=== PATIENT | male | born 1990 ===

== ENCOUNTER 2017-05-29 15:20 | Emergency (ER) | payer OTHER ==
[2017-05-29 16:22] LABS: Basophils % (Auto) 0.3 % (0.0-1.8); Hematocrit 48.5 % (35.5-45.6); Lymphocytes # (Auto) 0.8 K/mm3 (1.2-5.4); Lymphocytes % (Auto) 6.1 % (13.4-35.0); Mean Corpuscular HGB Conc 35 % (32-34); Mean Corpuscular Hemoglobin 32 pg (28-32); Mean Corpuscular Volume 90 fl (84-94); Monocytes # (Auto) 1.2 K/mm3 (0.0-0.8); Monocytes % (Auto) 9.4 % (0.0-7.3); Platelet Count 188 K/mm3 (140-440); Red Blood Count 5.39 M/mm3 (3.65-5.03); Red Cell Distribution Width 12.7 % (13.2-15.2)
[2017-05-29 16:40] LABS: BUN/Creatinine Ratio 16; Blood Urea Nitrogen 8 mg/dL (9-20); Calcium 10.2 mg/dL (8.4-10.2); Hemolysis Index 6
[2017-05-29 17:36] LABS: Amorphous Crystals,Urine Few; Calcium Oxalate Crystals,Urine FEW
[2017-05-29 17:38] LABS: Bacteria,Urine 2+ /HPF (Negative); Bilirubin,Urine NEG (Negative); Blood,Urine NEG (Negative); Color,Urine Amber (Yellow); Mucus,Urine 2+ /HPF; Nitrite,Urine NEG (Negative); Protein,Urine <15 mg/dL mg/dL (Negative)
[2017-05-29 18:57] LABS: Amphetamine Screen,Urine PRESUMPTIVE NEGATIVE; Benzodiazepines Screen,Urine PRESUMPTIVE NEGATIVE; Cannabinoid Screen,Urine PRESUMPTIVE NEGATIVE; Cocaine Screen,Urine PRESUMPTIVE NEGATIVE; Methadone Screen,Urine PRESUMPTIVE NEGATIVE; Opiate Screen,Urine PRESUMPTIVE NEGATIVE
[2017-05-29] MEDS ORDERED: NACL 0.9% 1000 ML 1,000 ML IV ONE (20:43)
[2017-05-29 21:34] LABS: Free T4 (Free Thyroxine) 1.27 ng/dL (0.76-1.46)
--- NOTE | 2017-05-29 22:06 | Emergency Department Report ---
ED Psych HPI - General Chief Complaint: Psych Stated Complaint: AMS Time Seen by Provider: 05/29/17 20:14 Source: patient, family, EMS, historical interpreter Mode of arrival: Ambulatory Limitations: Altered Mental Status - History of Present Illness Initial Comments: 26-year-old male with a past medical history of seizures presents to the hospital with complaints of alteration in mental status. As per triage states patient is not making sense. Patient just returned from a trip to [place] 2 days ago and has been not eating or sleeping with a fast heartbeat. Patient denies any pain. He is oriented to place, person, and year. He answers some questions appropriately and others inappropriately and makes various sounds when questioned. No distress noted. - Related Data Allergies Allergy/AdvReac Type Severity Reaction Status Date / Time No Known Allergies Allergy Unverified 05/29/17 15:48 ED Review of Systems ROS: Stated complaint: AMS Other details as noted in HPI Comment: Unobtainable due to pts medical conditions (limited due to psychosis) ED Past Medical Hx - Past Medical History Previous Medical History?: Yes Hx Seizures: Yes - Surgical History Past Surgical History?: No - Social History Smoking Status: Never Smoker Substance Use Type: None ED Physical Exam - General Limitations: Language Barrier - Other Other exam information: General: No limitations, patient is alert in no acute distress Head exam: Atraumatic, normocephalic Eyes exam: Normal appearance ENT: Moist mucous membrane, normal oropharynx Neck exam: Normal inspection, full range of motion Respiratory exam: Clear to auscultation bilateral, no wheezes, rales, crackles Cardiovascular: Normal rate and rhythm, normal heart sounds Abdomen: Soft, nondistended, and nontender, with normal bowel sounds, no rebound, or guarding Extremity: Full range of motion normal inspection no deformity Back: Normal Inspection, full range of motion, no tenderness Neurologic: Alert, oriented x3, cranial nerves intact, no motor or sensory deficit Psychiatric: Makes eye contact, answers some questions appropriately but appears to have psychosis and not making sense that time Skin: Warm, dry, intact ED Course Vital Signs 05/29/17 05/29/17 05/29/17 15:38 18:09 18:42 Temperature 100 F H 99.7 F H Pulse Rate 110 H 90 Respiratory Rate Blood Pressure 132/63 Blood Pressure 117/66 [Right] O2 Sat by Pulse 96 98 96 Oximetry 05/29/17 05/29/17 05/29/17 18:46 18:58 19:00 Temperature Pulse Rate 94 H 99 H Respiratory 22 8 L Rate Blood Pressure 134/83 Blood Pressure 128/76 [Right] O2 Sat by Pulse 96 96 97 Oximetry 05/29/17 05/29/17 05/29/17 19:15 19:31 20:00 Temperature Pulse Rate 91 H 93 H 95 H Respiratory 26 H 25 H 16 Rate Blood Pressure 134/83 134/83 135/78 Blood Pressure [Right] O2 Sat by Pulse 95 96 Oximetry 05/29/17 05/29/17 05/29/17 20:31 21:00 21:51 Temperature Pulse Rate 102 H 100 H Respiratory 16 15 Rate Blood Pressure 135/78 136/85 136/85 Blood Pressure [Right] O2 Sat by Pulse 95 97 95 Oximetry 05/29/17 05/29/17 05/29/17 22:00 22:31 23:00 Temperature Pulse Rate Respiratory Rate Blood Pressure 128/82 128/82 130/76 Blood Pressure [Right] O2 Sat by Pulse 96 96 97 Oximetry 05/30/17 02:29 Temperature 99.8 F H Pulse Rate Respiratory Rate Blood Pressure Blood Pressure [Right] O2 Sat by Pulse Oximetry ED Medical Decision Making - Lab Data Result diagrams: 05/29/17 16:04 05/29/17 16:04 Lab Results 05/29/17 05/29/17 05/29/17 Range/Units 16:04 16:04 16:04 WBC 12.7 H (4.5-11.0) K/mm3 RBC 5.39 H (3.65-5.03) M/mm3 Hgb 17.0 H (11.8-15.2) gm/dl Hct 48.5 H (35.5-45.6) % MCV 90 (84-94) fl MCH 32 (28-32) pg MCHC 35 H (32-34) % RDW 12.7 L (13.2-15.2) % Plt Count 188 (140-440) K/mm3 Lymph % (Auto) 6.1 L (13.4-35.0) % Early % (Auto) 9.4 H (0.0-7.3) % Eos % (Auto) 0.0 (0.0-4.3) % Baso % (Auto) 0.3 (0.0-1.8) % Lymph # 0.8 L (1.2-5.4) K/mm3 Early # 1.2 H (0.0-0.8) K/mm3 Eos # 0.0 (0.0-0.4) K/mm3 Baso # 0.0 (0.0-0.1) K/mm3 Seg Neutrophils % 84.2 H (40.0-70.0) % Seg Neutrophils # 10.7 H (1.8-7.7) K/mm3 D-Dimer (0-234) ng/mlDDU Sodium 141 (137-145) mmol/L Potassium 4.2 (3.6-5.0) mmol/L Chloride 101.4 (98-107) mmol/L Carbon Dioxide 24 (22-30) mmol/L Anion Gap 20 mmol/L BUN 8 L (9-20) mg/dL Creatinine 0.5 L (0.8-1.5) mg/dL Estimated GFR > 60 ml/min BUN/Creatinine Ratio 16 % Glucose 129 H (75-100) mg/dL Calcium 10.2 (8.4-10.2) mg/dL Ammonia (25-60) umol/L Total Creatine Kinase (55-170) units/L TSH (0.270-4.200) mlU/mL Free T4 (0.76-1.46) ng/dL Urine Color (Yellow) Urine Turbidity (Clear) Urine pH (5.0-7.0) Ur Specific Laurel (1.003-1.030) Urine Protein (Negative) mg/dL Urine Glucose (UA) (Negative) mg/dL Urine Ketones (Negative) mg/dL Urine Blood (Negative) Urine Nitrite (Negative) Ur Reducing Substances Urine Bilirubin (Negative) Urine Ictotest Urine Urobilinogen (<2.0) mg/dL Ur Leukocyte Esterase (Negative) Urine WBC (Auto) (0.0-6.0) /HPF Urine RBC (Auto) (0.0-6.0) /HPF Urine Bacteria (Auto) (Negative) /HPF Calcium Oxalate Crystal Amorphous Crystals Urine Mucus /HPF Salicylates (2.8-20.0) mg/dL Urine Opiates Screen Urine Methadone Screen Acetaminophen (10.0-30.0) ug/mL Ur Barbiturates Screen Ur Phencyclidine Scrn Ur Amphetamines Screen U Benzodiazepines Scrn Urine Cocaine Screen U Marijuana (THC) Screen Drugs of Abuse Note Plasma/Serum Alcohol < 0.01 (0-0.07) gm% 05/29/17 05/29/17 05/29/17 Range/Units 18:23 20:52 20:52 WBC (4.5-11.0) K/mm3 RBC (3.65-5.03) M/mm3 Hgb (11.8-15.2) gm/dl Hct (35.5-45.6) % MCV (84-94) fl MCH (28-32) pg MCHC (32-34) % RDW (13.2-15.2) % Plt Count (140-440) K/mm3 Lymph % (Auto) (13.4-35.0) % Early % (Auto) (0.0-7.3) % Eos % (Auto) (0.0-4.3) % Baso % (Auto) (0.0-1.8) % Lymph # (1.2-5.4) K/mm3 Early # (0.0-0.8) K/mm3 Eos # (0.0-0.4) K/mm3 Baso # (0.0-0.1) K/mm3 Seg Neutrophils % (40.0-70.0) % Seg Neutrophils # (1.8-7.7) K/mm3 D-Dimer 135.00 (0-234) ng/mlDDU Sodium (137-145) mmol/L Potassium (3.6-5.0) mmol/L Chloride (98-107) mmol/L Carbon Dioxide (22-30) mmol/L Anion Gap mmol/L BUN (9-20) mg/dL Creatinine (0.8-1.5) mg/dL Estimated GFR ml/min BUN/Creatinine Ratio % Glucose (75-100) mg/dL Calcium (8.4-10.2) mg/dL Ammonia 52.0 (25-60) umol/L Total Creatine Kinase (55-170) units/L TSH (0.270-4.200) mlU/mL Free T4 (0.76-1.46) ng/dL Urine Color (Yellow) Urine Turbidity (Clear) Urine pH (5.0-7.0) Ur Specific Laurel (1.003-1.030) Urine Protein (Negative) mg/dL Urine Glucose (UA) (Negative) mg/dL Urine Ketones (Negative) mg/dL Urine Blood (Negative) Urine Nitrite (Negative) Ur Reducing Substances Urine Bilirubin (Negative) Urine Ictotest Urine Urobilinogen (<2.0) mg/dL Ur Leukocyte Esterase (Negative) Urine WBC (Auto) (0.0-6.0) /HPF Urine RBC (Auto) (0.0-6.0) /HPF Urine Bacteria (Auto) (Negative) /HPF Calcium Oxalate Crystal Amorphous Crystals Urine Mucus /HPF Salicylates (2.8-20.0) mg/dL Urine Opiates Screen Presumptive negative Urine Methadone Screen Presumptive negative Acetaminophen (10.0-30.0) ug/mL Ur Barbiturates Screen Presumptive negative Ur Phencyclidine Scrn Presumptive negative Ur Amphetamines Screen Presumptive negative U Benzodiazepines Scrn Presumptive negative Urine Cocaine Screen Presumptive negative U Marijuana (THC) Screen Presumptive negative Drugs of Abuse Note Disclamer Plasma/Serum Alcohol (0-0.07) gm% 05/29/17 05/29/17 05/29/17 Range/Units 20:52 20:52 20:52 WBC (4.5-11.0) K/mm3 RBC (3.65-5.03) M/mm3 Hgb (11.8-15.2) gm/dl Hct (35.5-45.6) % MCV (84-94) fl MCH (28-32) pg MCHC (32-34) % RDW (13.2-15.2) % Plt Count (140-440) K/mm3 Lymph % (Auto) (13.4-35.0) % Early % (Auto) (0.0-7.3) % Eos % (Auto) (0.0-4.3) % Baso % (Auto) (0.0-1.8) % Lymph # (1.2-5.4) K/mm3 Early # (0.0-0.8) K/mm3 Eos # (0.0-0.4) K/mm3 Baso # (0.0-0.1) K/mm3 Seg Neutrophils % (40.0-70.0) % Seg Neutrophils # (1.8-7.7) K/mm3 D-Dimer (0-234) ng/mlDDU Sodium (137-145) mmol/L Potassium (3.6-5.0) mmol/L Chloride (98-107) mmol/L Carbon Dioxide (22-30) mmol/L Anion Gap mmol/L BUN (9-20) mg/dL Creatinine (0.8-1.5) mg/dL Estimated GFR ml/min BUN/Creatinine Ratio % Glucose (75-100) mg/dL Calcium (8.4-10.2) mg/dL Ammonia (25-60) umol/L Total Creatine Kinase 85 (55-170) units/L TSH 0.728 (0.270-4.200) mlU/mL Free T4 1.27 (0.76-1.46) ng/dL Urine Color (Yellow) Urine Turbidity (Clear) Urine pH (5.0-7.0) Ur Specific Laurel (1.003-1.030) Urine Protein (Negative) mg/dL Urine Glucose (UA) (Negative) mg/dL Urine Ketones (Negative) mg/dL Urine Blood (Negative) Urine Nitrite (Negative) Ur Reducing Substances Urine Bilirubin (Negative) Urine Ictotest Urine Urobilinogen (<2.0) mg/dL Ur Leukocyte Esterase (Negative) Urine WBC (Auto) (0.0-6.0) /HPF Urine RBC (Auto) (0.0-6.0) /HPF Urine Bacteria (Auto) (Negative) /HPF Calcium Oxalate Crystal Amorphous Crystals Urine Mucus /HPF Salicylates < 0.3 L (2.8-20.0) mg/dL Urine Opiates Screen Urine Methadone Screen Acetaminophen (10.0-30.0) ug/mL Ur Barbiturates Screen Ur Phencyclidine Scrn Ur Amphetamines Screen U Benzodiazepines Scrn Urine Cocaine Screen U Marijuana (THC) Screen Drugs of Abuse Note Plasma/Serum Alcohol (0-0.07) gm% 05/29/17 05/29/17 Range/Units 20:52 Unknown WBC (4.5-11.0) K/mm3 RBC (3.65-5.03) M/mm3 Hgb (11.8-15.2) gm/dl Hct (35.5-45.6) % MCV (84-94) fl MCH (28-32) pg MCHC (32-34) % RDW (13.2-15.2) % Plt Count (140-440) K/mm3 Lymph % (Auto) (13.4-35.0) % Early % (Auto) (0.0-7.3) % Eos % (Auto) (0.0-4.3) % Baso % (Auto) (0.0-1.8) % Lymph # (1.2-5.4) K/mm3 Early # (0.0-0.8) K/mm3 Eos # (0.0-0.4) K/mm3 Baso # (0.0-0.1) K/mm3 Seg Neutrophils % (40.0-70.0) % Seg Neutrophils # (1.8-7.7) K/mm3 D-Dimer (0-234) ng/mlDDU Sodium (137-145) mmol/L Potassium (3.6-5.0) mmol/L Chloride (98-107) mmol/L Carbon Dioxide (22-30) mmol/L Anion Gap mmol/L BUN (9-20) mg/dL Creatinine (0.8-1.5) mg/dL Estimated GFR ml/min BUN/Creatinine Ratio % Glucose (75-100) mg/dL Calcium (8.4-10.2) mg/dL Ammonia (25-60) umol/L Total Creatine Kinase (55-170) units/L TSH (0.270-4.200) mlU/mL Free T4 (0.76-1.46) ng/dL Urine Color Mariaelena (Yellow) Urine Turbidity Cloudy (Clear) Urine pH 7.0 (5.0-7.0) Ur Specific Laurel 1.019 (1.003-1.030) Urine Protein <15 mg/dl (Negative) mg/dL Urine Glucose (UA) Neg (Negative) mg/dL Urine Ketones 20 (Negative) mg/dL Urine Blood Neg (Negative) Urine Nitrite Neg (Negative) Ur Reducing Substances Not Reportable Urine Bilirubin Neg (Negative) Urine Ictotest Not Reportable Urine Urobilinogen 4.0 (<2.0) mg/dL Ur Leukocyte Esterase Sm (Negative) Urine WBC (Auto) 3.0 (0.0-6.0) /HPF Urine RBC (Auto) 4.0 (0.0-6.0) /HPF Urine Bacteria (Auto) 2+ (Negative) /HPF Calcium Oxalate Crystal Few Amorphous Crystals Few Urine Mucus 2+ /HPF Salicylates (2.8-20.0) mg/dL Urine Opiates Screen Urine Methadone Screen Acetaminophen < 15.0 (10.0-30.0) ug/mL Ur Barbiturates Screen Ur Phencyclidine Scrn Ur Amphetamines Screen U Benzodiazepines Scrn Urine Cocaine Screen U Marijuana (THC) Screen Drugs of Abuse Note Plasma/Serum Alcohol (0-0.07) gm% - EKG Data -: EKG Interpreted by Me EKG shows normal: sinus rhythm, axis (47), QRS complexes (lvh), ST-T waves (no stemi) Rate: normal (78) - EKG Data When compared to previous EKG there are: previous EKG unavailable - Radiology Data Radiology results: report reviewed (ct head: naf) - Medical Decision Making Heart rate improved spontaneously. IV fluids given for mild dehydration. D- dimer negative. Other laboratory, CT, a urine findings unremarkable. Patient is medically clear for psychiatric consult and transfer pt is afebrile rectally - Differential Diagnosis new-onset psychosis, drug abuse, intracranial abnormality, encephalopathy Critical Care Time: No Critical care attestation.: If time is entered above; I have spent that time in minutes in the direct care of this critically ill patient, excluding procedure time. ED Disposition Clinical Impression: Psychosis, Medical clearance for psychiatric admission Disposition: [id number]/[id number] PSY HOSP/PSY UNIT Is pt being admited?: No Condition: Stable Referrals: PRIMARY CAREMD [Primary Care Provider] - 3-5 Days Time of Disposition: 23:36 (awaiting acceptance)
--- NOTE | 2017-05-29 22:32 | Cat Scan Report ---
FINAL REPORT PROCEDURE: CT HEAD/BRAIN WO CON TECHNIQUE: Computerized tomography of the head was performed without contrast material. HISTORY: Altered mental status COMPARISON: No prior studies are available for comparison. FINDINGS: No CT evidence of intracranial mass, hemorrhage, acute territorial infarction, or hydrocephalus. The intracranial arteries are symmetric in density. There is a focal punctate calcification in the peripheral left parietal lobe, possibly related to prior infectious process. Calvarium is intact. Visualized paranasal sinuses and mastoids are aerated. There is deformity of the left medial orbital wall, which has a chronic appearance, likely related to old trauma IMPRESSION: No CT evidence of acute abnormality
[2017-05-30] MEDS ORDERED: GEODON IM ONE (00:28)
--- NOTE | 2017-05-30 11:03 | Consultation ---
History of Present Illness - Reason for Consult Consult date: 05/30/17 Reason for consult: Mental Health Evaluation Requesting physician: OLGA DE LA CRUZ - Chief Complaint Chief complaint: "I don't speak omani" - History of Present Psychiatric Illness 26 y.o. hungarian speaking male patient presenting to [facility] for bizarre behavior his spouse. Today patient is calm during the assessment. Patient does not speak or understand omani. Per collateral information from his daughter Ms Borja, she stated that her father behavior has been "weird" since returning from [place] weeks ago. She stated prior to his admission to [facility], he didn't recognize her and was talking to himself on the corner near their home. She stated that her father has a hx of seizures, but have not taken his medication in a year. She was not able to ID the patient's seizure medications. She denies that her father has a mental health dx. During the interview while using the construction coordinator line ([id number]), the patient was disorganized and had to be redirected several times to keep him of topic, possibly responding to some type of stimuli. I asked patient about his seizure hx, he stated, "To my knowledge I don't remember." He denies recreational drug use and alcohol consumption (etoh). Medications and Allergies Allergies Allergy/AdvReac Type Severity Reaction Status Date / Time No Known Allergies Allergy Unverified 05/29/17 15:48 Past psychiatric history - Past Medical History Past Medical History: seizures, other (Per his daughter, patients had seizures) Past Surgical History: No surgical history - past Psychiatric treatment and history psychiatric treatment history: Per the family, no psy hx and and no fam psy hx. - Social History Social history: lives with family Mental Status Exam - Vital signs Last Vital Signs Temp 99.8 F H 05/30/17 02:29 Pulse 100 H 05/29/17 21:00 Resp 15 05/29/17 21:00 BP 130/76 05/29/17 23:00 Pulse Ox 97 05/29/17 23:00 - Exam Narrative exam: MSE: Appearance: calm Behavior: regular eye contact Speech: regular rate and tone Mood: "okay" Affect: blunted Thought Process: circumstantial Thought Content: denies SI/HI's and AVH's, disorganized Motor Activity: sitting up in bed Cognition: A/O x3 Insight: poor Judgment: poor Results Result Diagrams: 05/29/17 16:04 05/29/17 16:04 Abnormal lab results 05/29/17 05/29/17 05/29/17 Range/Units 16:04 16:04 20:52 WBC 12.7 H (4.5-11.0) K/mm3 RBC 5.39 H (3.65-5.03) M/mm3 Hgb 17.0 H (11.8-15.2) gm/dl Hct 48.5 H (35.5-45.6) % MCHC 35 H (32-34) % RDW 12.7 L (13.2-15.2) % Lymph % (Auto) 6.1 L (13.4-35.0) % Gordon % (Auto) 9.4 H (0.0-7.3) % Lymph # 0.8 L (1.2-5.4) K/mm3 Gordon # 1.2 H (0.0-0.8) K/mm3 Seg Neutrophils % 84.2 H (40.0-70.0) % Seg Neutrophils # 10.7 H (1.8-7.7) K/mm3 BUN 8 L (9-20) mg/dL Creatinine 0.5 L (0.8-1.5) mg/dL Glucose 129 H (75-100) mg/dL Salicylates < 0.3 L (2.8-20.0) mg/dL All other labs normal. Assessment and Plan Assessment and plan: Impression: Unspecified Psychosis. Today patient is calm during the assessment. Patient is disorganized. DDx: R/O Bipolar, Schizophrenia Recommendation/Plan: Continue 1013 with placement to inpatient psy services. Start Zyprexa 5 mg PO HS for psychosis. Discussed possible metabolic side effect of Zyprexa with patient. Informed the ER staff, patient has a hx of seizures.
[2017-05-30] MEDS: KEPPRA PO SCH ×2 (18:01→22:31)
[2017-05-31] MEDS: KEPPRA PO SCH ×2 (10:10→23:13)
--- NOTE | 2017-05-31 12:10 | Progress Note ---
Subjective - Reason for Consult Consult date: 05/31/17 Reason for consult: Psychiatry Follow-up - Chief Complaint Chief complaint: "I don't speak korean" 26 y.o. maldivian speaking male patient presenting to [facility] for bizarre behavior his spouse. Today patient is calm, but disorganized during the assessment. The extension supervisor line was used during the assessment (molded goods operator [id number]). The patient had to be redirected several times to keep him on topic during the interview. Once the interview was complete, the patient was observed pacing in the room and speaking maldivian loud to himnself, possibly responding to some type of stimuli. He denies SI/H's and AVH's. He denies side effects of his medication. Mental Status Exam - Vital signs Last Vital Signs Temp 98.6 F 05/31/17 11:46 Pulse 88 05/31/17 11:46 Resp 18 05/31/17 11:49 BP 132/82 05/31/17 11:46 Pulse Ox 96 05/31/17 11:46 - Exam Narrative exam: MSE: Appearance: calm Behavior: regular eye contact Speech: regular rate and loud tone Mood: "okay" Affect: blunted Thought Process: tangential Thought Content: denies SI/HI's and AVH's, disorganized Motor Activity: sitting up in bed Cognition: A/O x3 Insight: poor Judgment: poor Assessment and Plan Impression: Unspecified Psychosis. Today patient is calm during the assessment. Patient is disorganized. DDx: R/O Bipolar, Schizophrenia Recommendation/Plan: Continue 1013 with placement to inpatient psy services. Continue Zyprexa 5 mg PO BID for psychosis. Discussed possible metabolic side effect of Zyprexa with patient. Informed the ER staff, patient has a hx of seizures.
[2017-06-01] MEDS: KEPPRA PO SCH ×2 (10:42→21:34)
[2017-06-01] MEDS ORDERED: ATIVAN PO ONE (21:34)
[2017-06-02] MEDS: KEPPRA PO SCH ×2 (09:56→22:04)
--- NOTE | 2017-06-02 10:45 | Progress Note ---
Subjective - Reason for Consult Consult date: 06/02/17 Reason for consult: Psychiatry Follow-up - Chief Complaint Chief complaint: "I don't speak french" 26 y.o. english speaking male patient presenting to [facility] for bizarre behavior his spouse. Today patient is calm and cooperative during the assessment. The pet resort concierge line was used during the assessment (brake operator [id number]). The patient was more organized today. His answers were more logical today when asked questions. He denies SI/HI's and AVH's. He denies any side effects of his medications. Mental Status Exam - Vital signs Last Vital Signs Temp 98 F 06/02/17 08:48 Pulse 82 06/02/17 08:48 Resp 18 06/02/17 08:50 BP 112/72 06/02/17 08:48 Pulse Ox 96 05/31/17 19:40 - Exam Narrative exam: MSE: Appearance: calm, cooperative Behavior: regular eye contact Speech: regular rate and loud tone Mood: "okay" Affect:congruent to mood Thought Process: circumstantial Thought Content: denies SI/HI's and AVH's Motor Activity: ambulatory Cognition: A/O x3 Insight: variable Judgment: variable Assessment and Plan Impression: Unspecified Psychosis. Today patient is calm and cooperative during the assessment. DDx: R/O Bipolar, Schizophrenia Recommendation/Plan: Continue 1013 with placement to inpatient psy services. Continue Zyprexa 5 mg PO BID for psychosis. Discussed possible metabolic side effect of Zyprexa with patient. Informed the ER staff, patient has a hx of seizures.
[2017-06-02 21:57] LABS: Mean Corpuscular HGB Conc 36 % (32-34); Mean Corpuscular Hemoglobin 32 pg (28-32); Mean Corpuscular Volume 89 fl (84-94); Platelet Count 156 K/mm3 (140-440); Red Cell Distribution Width 12.1 % (13.2-15.2)
[2017-06-02 22:08] LABS: Hematocrit 45.5 % (35.5-45.6); Hemoglobin 16.2 gm/dl (11.8-15.2)
[2017-06-02 23:05] LABS: Band Neutrophils # (Manual) 0.1 K/mm3; Basophils % (Manual) 0 % (0.0-1.8); Total Cells Counted 100
[2017-06-02 23:06] LABS: Anisocytosis 1+; Platelet Estimate Consistent w Auto
[2017-06-03 09:34] LABS: Hematocrit 47.4 % (35.5-45.6); Hemoglobin 16.5 gm/dl (11.8-15.2); Mean Corpuscular HGB Conc 35 % (32-34); Mean Corpuscular Hemoglobin 31 pg (28-32); Mean Corpuscular Volume 88 fl (84-94); Platelet Count 166 K/mm3 (140-440); Red Blood Count 5.37 M/mm3 (3.65-5.03); Red Cell Distribution Width 12.1 % (13.2-15.2)
--- NOTE | 2017-06-03 09:54 | Progress Note ---
Subjective - Reason for Consult Consult date: 06/03/17 Reason for consult: Psychiatry Follow-up - Chief Complaint Chief complaint: "I don't speak romanian" 26 y.o. amharic speaking male patient presenting to [facility] for bizarre behavior his spouse. Today patient is calm and cooperative during the assessment. The sales team leader line was used during the assessment (certified solid waste facility operator [id number]). The patient was lucid during the interview. He denies SI/HI's and AVH's. He denies any side effects of his medications. Mental Status Exam - Vital signs Last Vital Signs Temp 97.5 F L 06/03/17 08:08 Pulse 61 06/03/17 08:08 Resp 14 06/03/17 08:09 BP 98/40 06/03/17 08:08 Pulse Ox 97 06/03/17 08:09 - Exam Narrative exam: MSE: Appearance: calm, cooperative Behavior: regular eye contact Speech: regular rate and loud tone Mood: "okay" Affect:congruent to mood Thought Process: circumstantial Thought Content: denies SI/HI's and AVH's Motor Activity: ambulatory Cognition: A/O x3 Insight: variable Judgment: variable Assessment and Plan Impression: Unspecified Psychosis. Today patient is calm and cooperative during the assessment. DDx: R/O Bipolar, Schizophrenia Recommendation/Plan: Continue 1013 with pending placement to [facility]. Continue Zyprexa 5 mg PO BID for psychosis. Discussed possible metabolic side effect of Zyprexa with patient. Informed the ER staff, patient has a hx of seizures. Patient can follow up for outpatient psy services with [facility].
[2017-06-03] MEDS: KEPPRA PO SCH ×2 (10:19→22:10)
[2017-06-03 10:44] LABS: BUN/Creatinine Ratio 13; Blood Urea Nitrogen 8 mg/dL (9-20); Calcium 9.1 mg/dL (8.4-10.2); Hemolysis Index 14
[2017-06-04 09:46] VITALS: BP 108/62
--- NOTE | 2017-06-04 10:07 | Progress Note ---
Subjective - Reason for Consult Consult date: 06/04/17 Reason for consult: Psychiatry Follow-up - Chief Complaint Chief complaint: "Hello" 26 y.o. telugu speaking male patient presenting to [facility] for bizarre behavior his spouse. Today patient is calm and cooperative during the assessment. The online program coordinator line was used during the assessment (oilfield plant and field operator [id number]). The patient was lucid and organized during the interview. He stated that he will follow up with his PCP (patient has a hx of seizures). He stated that he feel "better mentally." Per the staff, patient have been completing his ADL's and eating 100 % of his meals. Per the notes, no behavioral disturbance overnight. He denies SI /HI's and AVH's. He denies any side effects of his medications. Mental Status Exam - Vital signs Last Vital Signs Temp 97.5 F L 06/04/17 09:46 Pulse 69 06/04/17 09:46 Resp 18 06/04/17 09:46 BP 108/62 06/04/17 09:46 Pulse Ox 98 06/04/17 09:46 - Exam Narrative exam: MSE: Appearance: calm, cooperative Behavior: regular eye contact Speech: regular rate and loud tone Mood: "okay" Affect:congruent to mood Thought Process: linear Thought Content: denies SI/HI's and AVH's Motor Activity: ambulatory Cognition: A/O x3 Insight: appropriate Judgment: appropriate Assessment and Plan Impression: Unspecified Psychosis. Today patient is calm and cooperative during the assessment. DDx: R/O Bipolar, Schizophrenia Recommendation/Plan: Rescind 1013. Continue Zyprexa 5 mg PO BID for psychosis. Discussed possible metabolic side effect of Zyprexa with patient. Patient can follow up for outpatient psy services with [facility].
[2017-06-04] MEDS: KEPPRA PO SCH (11:08)
== END 2017-06-04 15:01 | disposition home or self-care (01) ==
LOC: ED 15:20 → EEVIPCON 15:20 → ED 06-04 15:01
DX: F29 Unspecified psychosis not due to a substance or known physiological condition (principal)
CPT/HCPCS: 36415; 70450; 80048; 80307; 81001; 82140; 82550; 84439; 84443; 85007; 85025; 85027; 85379; 93005; 93010; 96360; 96361; 96372; 99285; G0480; J3486; J7030; 80320